=== PATIENT | male | born 1985 | race Caucasian/White ===

== ENCOUNTER 2018-05-23 03:19 | Emergency (ER) | payer MEDICAID ==
[~2018-05-23] VITALS: Ht 172.7 cm; Wt 109.0 kg
[2018-05-23 03:38] VITALS: BP 166/108
== END 2018-05-23 09:42 | disposition left against medical advice (07) ==
LOC: ER 03:19
DX: M79.18 Myalgia, other site (principal); Z53.21 Procedure and treatment not carried out due to patient leaving prior to being seen by health care provider